=== PATIENT | male | born 1940 | race Caucasian/White ===

== ENCOUNTER → 2017-04-15 | Outpatient (CLI) | payer MEDICARE, BC ==
[2017-04-15 07:43] LABS: Blood Urea Nitrogen 18 mg/dL (9-20); Non-African American GFR(MDRD) >60 (>60 ml/min/1.73 sqM)
--- NOTE | 2017-04-15 12:05 | MR ---
EXAMINATION TYPE: MR cspine/lspine wo/w con DATE OF EXAM: 04/15/2017 COMPARISON: NONE HISTORY: cervicalgia, low back pain TECHNIQUE: Multiplanar, multisequence images of the lumbar and cervical spine is performed without and with IV c ontrast, utilizing 20 mL intravenous MultiHance FINDINGS: Cervical spine: Erosive change present at the level of the dens, there is a pannus formation. Cervica l vertebral bodies show preserved height and alignment, minimal mild anterolisthesis grade 1 C7-T1. T here is multilevel spondylosis, loss of disc height and signal is present especially at C4-5, C5-6 an d C6-7. Endplate discogenic marrow signal changes are present. There may be an underlying spinal curv ature. No abnormal enhancement following contrast administration. Cervical cord signal is maintained. C2-3: Posterior broad-based disc bulge contacts anterior cervical cord, mild to moderate central aminata l stenosis. Uncovertebral joint hypertrophy and facet arthropathy causing left-sided foraminal encroa chment. C3-4: Posterior broad-based disc bulge may contact the anterior cervical cord. Bilateral foraminal en croachment present left greater than right. There is mild central stenosis. C4-5: Bilateral foraminal encroachment is present right greater than left. Anterolateral mass effect on the thecal sac towards the right due to endplate disc complex extending towards the right neural f oramen. On mild central stenosis. C5-6: Posterior broad-based disc bulge, endplate disc complex causes anterior mass effect on the thec al sac, mild central stenosis. There is bilateral foraminal encroachment. C6-7: Left greater than right foraminal encroachment is present. Posterior broad-based disc bulge cau ses only minimal anterior mass effect on the thecal sac, no significant central stenosis C7-T1: No significant central stenosis or disc herniation. There is bilateral foraminal encroachment. IMPRESSION: Multilevel foraminal encroachment, degenerative disc disease, spinal stenosis. Arthropat hy changes at C2. Lumbar spine MRI: Anterolisthesis grade 1 L4-5. Loss of disc height and signal is present at L4-5. Mu ltilevel spondylosis, endplate discogenic marrow signal changes are present. Lumbar vertebral bodies show preserved height. T12 shows hemangioma within the vertebral body. The conus is at L1 shows an un remarkable appearance. Large exophytic cyst present at the lower pole right kidney measuring approxim ately 5.5 cm in size. L5-S1: Facet arthropathy changes present with hypertrophy of ligamentum flavum. Posterior extension o f broad-based disc bulge may contact the proximal S1 nerve root left greater than right. Only minimal posterior broad-based disc bulge, some mild left-sided foraminal encroachment suspected. L4-5: Listhesis contributes with facet arthropathy and hypertrophic changes of the ligamentum flavum to result in severe central canal stenosis. Bilateral foraminal encroachment is present. There is onl y a small posterior broad-based disc bulge. L3-4: No significant central stenosis, foraminal encroachment, or disc herniation. L2-3: Broad-based posterior disc bulge causes minimal anterior mass effect on the thecal sac. No sign ificant central stenosis or foraminal encroachment. L1-2: Broad-based posterior disc bulge causes mild anterior mass effect on the thecal sac. Hypertroph ic change of the ligamentum flavum causes some minimal contact posterior laterally at the thecal sac. No abnormal enhancement following contrast administration. IMPRESSION: Degenerative disc disease, facet arthropathy, spinal stenosis most marked at L4-5. Additi onal findings above.
== END | disposition home or self-care (01) ==
LOC: RADMRIMAIN 07:16
PROVIDERS: ATTEND Physical Medicine & Rehabilitation
DX: M48.06 Spinal stenosis, lumbar region (principal); M51.36 Other intervertebral disc degeneration, lumbar region; M46.96 Unspecified inflammatory spondylopathy, lumbar region; M46.92 Unspecified inflammatory spondylopathy, cervical region; M43.16 Spondylolisthesis, lumbar region; M47.817 Spondylosis without myelopathy or radiculopathy, lumbosacral region; M48.02 Spinal stenosis, cervical region; M50.10 Cervical disc disorder with radiculopathy, unspecified cervical region; M47.22 Other spondylosis with radiculopathy, cervical region; M41.22 Other idiopathic scoliosis, cervical region; M16.0 Bilateral primary osteoarthritis of hip; Z85.46 Personal history of malignant neoplasm of prostate
CPT/HCPCS: 82565; 84520; 72156; 72158; A9577

== ENCOUNTER → 2018-07-10 | Outpatient (CLI) | payer MEDICARE, BC | END | disposition home or self-care (01) | LOC: LABPAT 12:35 | PROVIDERS: ATTEND Orthopaedic Surgery | DX: Z01.812 Encounter for preprocedural laboratory examination (principal); M16.12 Unilateral primary osteoarthritis, left hip | CPT/HCPCS: 86850; 86900; 86901; 87070; 87086 ==

== ENCOUNTER 2018-07-20 10:40 | Inpatient (IN) | payer MEDICARE, BC ==
[2018-07-09 15:20] VITALS: BMI 31.0
[~2018-07-20 10:40] MED LIST: ACETAMINOPHEN TAB 500 MG TAB PO ONE; DEXAMETHASONE SOD PHOSPHATE 10 MG/ML 1 ML VIAL IV ONE; HYDROmorphone 0.5 MG/0.5 ML SYRINGE IVP PRN; MELOXICAM 7.5 MG TAB PO ONE; MIDAZOLAM 2 MG/2 ML VIAL IV PRN; ONDANSETRON 4 MG/2 ML VIAL IVP ONE; ROPIVACAINE 246.25 MG, EPINEPHrine 0.5 MG, KETOROLAC 30 MG, cloNIDine HCL/PF 80 MCG, WA... MISCELLANE ONE; TRANEXAMIC ACID 1,000 MG in SODIUM CHLORIDE 0.9% 50 ML IVPB ONE; ceFAZolin IN SWFI 2 GM/20 ML SYRINGE IVP ONE
[2018-07-20] MEDS ORDERED: MAGNESIUM HYDROXIDE 2,400 MG/10 ML CUP PO PRN (11:33)
[2018-07-20] MEDS ORDERED: NALOXONE 0.4 MG/ML 1 ML VIAL IV PRN (11:33)
[2018-07-20] MEDS ORDERED: ONDANSETRON 4 MG/2 ML VIAL IVP PRN (11:33)
[2018-07-20] MEDS ORDERED: HYDROmorphone 1 MG/ML 1 ML SYRINGE IVP PRN ×3 (11:33)
[2018-07-20] MEDS ORDERED: HYDROcodone/APAP 5-325MG 1 EACH TAB PO PRN (11:33)
[2018-07-20] MEDS ORDERED: DIAZEPAM 5 MG TAB PO PRN ×2 (11:33)
[2018-07-20] MEDS ORDERED: hydrOXYzine PAMOATE 25 MG CAP PO PRN (11:33)
[2018-07-20 11:34] VITALS: RESP 16
[2018-07-20] MEDS: LACTATED RINGERS 1,000 ML IV SCH (11:35)
[2018-07-20] MEDS ORDERED: LIDOCAINE 1% 20 ML VIAL (10MG/ML) FOR IV START INTRADERMA ONE (11:35)
[2018-07-20] MEDS ORDERED: fentaNYL (PF) 50 MCG/ML 2 ML AMP ONE (12:18)
[2018-07-20] MEDS ORDERED: PROPOFOL 10 MG/ML 20 ML VIAL IV ONE (12:18)
[2018-07-20] MEDS ORDERED: MIDAZOLAM 2 MG/2 ML VIAL ONE (12:18)
[2018-07-20] MEDS ORDERED: SODIUM CHLORIDE 0.9% 100 ML BAG ONE (12:18)
[2018-07-20] MEDS ORDERED: TRANEXAMIC ACID 1,000 MG/10 ML VIAL ONE (12:18)
[2018-07-20] MEDS ORDERED: ceFAZolin 3,000 MG in SODIUM CHLORIDE 0.9% IRRIGATIO 3,000 ML IRRIGATION ONE (13:04)
--- NOTE | 2018-07-20 13:51 | P.OP ---
Date of Procedure: 07/20/18 Preoperative Diagnosis: Severe osteoarthritis left hip Postoperative Diagnosis: Severe osteoarthritis left hip. Procedure(s) Performed: Left total hip arthroplasty with a direct anterior approach Implants: Scott [employer] nephew Polarstem size 4 standard [employer]hew R3, 3 hole acetabular shell, 52 mm [employer] reflection 6.5 mm cancellus screw, 25 mm 2 [employer] R3, XLPE 20 acetabular liner [employer]hew Oxinium femoral head 36 m, +0 All components were press-fit. The articulation is Oxinium on polyethylene. Anesthesia: spinal Surgeon: Luis Antonio Joaquin Process Engineering Intern #1: Sangita Wesley Estimated Blood Loss (ml): 100 Pathology: other (Femoral head) Condition: stable Disposition: PACU Indications for Procedure: After failure of conservative treatment we discussed the surgical and nonsurgical treatment options at length. Patient wishes to proceed with a total hip arthroplasty with a direct anterior approach. Complications specific to this procedure were discussed at length, including but not limited to infection, leg length discrepancy, dislocation, and nerve injury. Patient is aware of all these complications and informed consent was obtained Operative Findings: The operative findings are consistent with severe osteoarthritis of left hip Description of Procedure: Patient was seen and evaluated in the preoperative area, consent was reviewed, and the surgical site was marked with a skin marker. Patient was then brought to the operating room and given prophylactic antibiotics intravenously. 1 g of Tranexamic acid was also given. A spinal anesthetic was administered by the anesthesia department. The patient was then placed on the [place] table with the bony prominences well-padded. The hip area was then prepped and draped in usual sterile fashion. A universal timeout was then performed, which confirmed the patient's name, surgical site, ALLERGIES, and procedure being performed. Next the incision site was located at 1 cm distal and 1 cm lateral to the anterior superior iliac spine. The skin and subcutaneous tissues were sharply incised. Incision was carefully dissected down to the fascia overlying the tensor fascia hans muscle. This fascia was then incised in line with the incision. Next, using blunt finger dissection, the tensor fascia hans muscle was dissected off its investing fascia. The muscle was then carefully retracted laterally with a cobra retractor over the lateral neck of the femur. Next, the circumflex vessels were identified and cauterized using the AquaMantis device. The anterior hip capsule was then exposed. The capsule was then opened and an inverted T fashion. Cobra retractors were then placed intracapsularly. The proximal femur was then visualized. The femoral neck was then osteotomized appropriate level above the lesser trochanter. Small amount of traction was placed with the [place] table. A small wedge of bone was then removed from the remaining femoral head. Next, using a corkscrew femoral head was easily removed from the acetabulum. On gross visual inspection, the femoral head had complete loss of articular cartilage in multiple periarticular osteophytes. Attention was then turned to the acetabulum. the acetabulum was exposed and any remaining labrum was excised. Sequential reaming of the acetabulum was performed using fluoroscopic guidance. When the appropriate size was reached, a trial was then placed. The position and fit of the trial was checked with fluoroscopy. The trial was then removed. Then, using fluoroscopic guidance, the final implant was impacted at 20 of anteversion and 40 of abduction, and fully seated in the acetabulum. 2 screws were then placed in the acetabulum. Again fluoroscopy was used to check position of the screws. Next, the liner was then impacted, with a 20 elevated liner located in the anterior superior quadrant. Component locking was confirmed. Attention was then directed to the femur. With the aid of the [place] table, the femur was externally rotated to approximately 130, extended, and abducted under the opposite leg. A side hook was then placed under the proximal femur, and the side hook elevator was used to elevate the proximal femur. Retractors were then placed. A capsular release was performed, as well as a release of the conjoined tendon, which afforded excellent visualization of the proximal femur. Next, a box osteotome was used to lateralize the proximal femur. A merchandising intern was then used to locate the femoral canal. Sequential broaching was then performed with appropriate size which afforded excellent fixation in the proximal femur. A trial was then placed with appropriate head and neck, and the hip was gently reduced with the aid of the [place] table. Fluoroscopy was then used to check position of the components, as well as to ensure equal leg lengths. The hip was then gently dislocated and the trials were then removed. Final implants were then impacted and the hip was again reduced. Final fluoroscopic x-rays confirmed that the components were in anatomic position, as well as equal leg lengths. The hip was also taken through range of motion, and found to be stable. The hip was then copiously irrigated with antibiotic solution with pulsatile lavage. The hip was then irrigated with Irrisept solution. The soft tissues were then injected with a ropivacaine solution, which consisted of 246.25 mg of ropivacaine, 0.5 mg of epinephrine, 30 mg of Toradol, 80 g of clonidine, and 48.45 mL of sterile water, for a total of 100 mL of fluid injected. A second dose of 1 g of Tranexamic acid was also given. the fascia was then closed with 2-0 strata fix suture. The subcutaneous tissue was closed with 3-0 Vicryl. The subcuticular tissue was closed with 3-0 strata fix suture. The skin was then closed with Dermabond glue and a sterile silver dressing. The patient was then transferred to the recovery room in stable condition. The assistant manager BISMARK Muhammad was required due to the complexity of surgery, and the need for skilled operating room surgical technologist for positioning, draping, exposure, retraction, and closure of the wound.
--- NOTE | 2018-07-20 14:31 | XR ---
EXAMINATION TYPE: XR Hip Limited 1 view LT DATE OF EXAM: 07/20/2018 COMPARISON: NONE HISTORY: 77-year-old male status post hip surgery, assess surgical alignment FINDINGS: Single frontal view shows left hip arthroplasty. Both acetabular cup and femoral stem components of t he prosthesis appear well seated without periprosthetic fracture. Alignment grossly anatomic. Surgica l clips in the midline pelvis. IMPRESSION: Uncomplicated postoperative appearance left total hip arthroplasty.
[2018-07-20] MEDS: SODIUM CHLORIDE 0.9% 1,000 ML IV SCH (14:43)
--- NOTE | 2018-07-20 15:58 | FL ---
Fluoroscopy HISTORY: Left hip arthroplasty 45 seconds fluoroscopy time supplied to the referring clinician. 2 intraoperative C-arm images docum ent the procedure. See dictated report from orthopedic surgery.
--- NOTE | 2018-07-20 15:59 | XR ---
Limited left hip HISTORY: Total hip arthroplasty 2 intraoperative C-arm images document the procedure.
[2018-07-20] MEDS: ceFAZolin IN SWFI 2 GM/20 ML SYRINGE IVP SCH (20:56)
[2018-07-20] MEDS: ASPIRIN 325 MG TAB PO SCH (20:56)
[2018-07-20] MEDS: HYDROcodone/APAP 5-325MG 1 EACH TAB PO PRN (20:56)
[2018-07-20] MEDS ORDERED: SENNOSIDES-DOCUSATE SODIUM 1 EACH TAB PO SCH (21:00)
[2018-07-21] MEDS: HYDROcodone/APAP 5-325MG 1 EACH TAB PO PRN ×2 (03:12→09:04)
[2018-07-21] MEDS: SODIUM CHLORIDE 0.9% 1,000 ML IV SCH (04:51)
[2018-07-21] MEDS: ceFAZolin IN SWFI 2 GM/20 ML SYRINGE IVP SCH (05:29)
[2018-07-21] MEDS: LACTATED RINGERS 1,000 ML IV SCH (07:18)
[2018-07-21 08:14] LABS: Basophils % (A) 0 %; Eosinophils % (A) 0 %; HCT 36.4 % (39.0-53.0); HGB 12.3 gm/dL (13.0-17.5); Lymphocytes # (A) 1.5 k/uL (1.0-4.8); Lymphocytes % (A) 10 %; MCH 32.1 pg (25.0-35.0); MCHC 33.7 g/dL (31.0-37.0); MCV 95.4 fL (80.0-100.0); Mean Platelet Volume 7.8; Monocytes # (A) 1.1 k/uL (0-1.0); Monocytes % (A) 7 %; Neutrophils # (A) 12.1 k/uL (1.3-7.7); Neutrophils % (A) 81 %; Platelet Count 239 k/uL (150-450); RBC 3.82 m/uL (4.30-5.90); RDW 13.5 % (11.5-15.5); WBC 14.9 k/uL (3.8-10.6)
[2018-07-21] MEDS ORDERED: MELOXICAM 7.5 MG TAB PO SCH (09:00)
[2018-07-21] MEDS ORDERED: LISINOPRIL-HCTZ 20-25 MG 1 EACH TAB PO SCH (09:00)
[2018-07-21] MEDS ORDERED: amLODIPine 5 MG TAB PO SCH (09:00)
[2018-07-21] MEDS ORDERED: ALLOPURINOL 100 MG TAB PO SCH (09:00)
[2018-07-21] MEDS: ASPIRIN 325 MG TAB PO SCH (09:02)
--- NOTE | 2018-07-21 09:11 | P.CONS ---
History of Present Illness - Reason for Consult Consult date: 07/21/18 medical management Requesting physician: Luis Antonio Joaquin - Chief Complaint Status post left total hip - History of Present Illness 77-year-old male who underwent elective left total hip arthroplasty on 07/20/[address] Hobson was consulted for medical management. The patient has a history of prostate cancer and hypertension. The patient is a former cigarette smoker and quit smoking approximately 15 years ago. The patient was seen and examined at the bedside with Dr. Hobson. The patient is awake and alert. Patient states his pain is tolerable at this time. He denies cough, congestion, or shortness of breath. He denies chest pain or pressure. Denies nausea or vomiting. Denies lightheadedness or dizziness. WBC 14.9. Hemoglobin 12.3. Vital signs have been stable. He is afebrile. He is on room air with oxygen saturations greater than 92%. Review of Systems Those systems with pertinent positive or pertinent negative responses have been documented in the HPI Past Medical History Past Medical History: Cancer, Hypertension, Prostate Disorder Additional Past Medical History / Comment(s): PROSTATE CANCER History of Any Multi-Drug Resistant Organisms: None Reported Past Surgical History: Orthopedic Surgery, Prostate Surgery Additional Past Surgical History / Comment(s): Prostatectomy, right carpal tunnel release, LASIK EYE SX, trigger finger, colonoscopy about 3 years ago. Past Anesthesia/Blood Transfusion Reactions: No Reported Reaction Smoking Status: Former smoker - Past Family History Father Family Medical History: Cancer, CVA/TIA Additional Family Medical History / Comment(s): LUNG CANCER Mother Family Medical History: Coronary Artery Disease (CAD) Additional Family Medical History / Comment(s): HEART PROBLEMS Daughter(s) Family Medical History: No Reported History Son(s) Family Medical History: No Reported History Medications and Allergies Home Medications Medication Instructions Recorded Confirmed Type amLODIPine [Norvasc] 5 mg PO QAM 07/18/15 07/20/18 History HYDROcodone/APAP 7.5-325MG [[place] 1 - 2 tab PO Q4-6H PRN 07/21/15 07/20/18 History 7.5-325] Allopurinol [Zyloprim] 100 mg PO DAILY 07/09/18 07/20/18 History Lisinopril-Hctz 20-25 mg 1 tab PO QAM 07/09/18 07/20/18 History [Zestoretic 20-25] Naproxen 500 mg PO BID 07/09/18 07/20/18 History Allergies Allergy/AdvReac Type Severity Reaction Status Date / Time No Known Allergies Allergy Verified 07/20/18 13:59 Physical Exam Vitals: Vital Signs Temp Pulse Pulse Resp BP BP Pulse Ox 07/21/18 07:35 98.5 F 65 16 142/69 96 07/21/18 01:18 98.7 F 64 16 135/68 98 07/20/18 16:59 58 L 132/63 94 L 07/20/18 16:45 63 137/72 97 07/20/18 16:30 75 152/70 95 07/20/18 16:15 73 136/63 95 07/20/18 16:00 58 L 16 144/67 95 07/20/18 15:45 98 109/88 98 07/20/18 15:30 88 117/70 98 07/20/18 15:15 72 145/66 98 07/20/18 15:00 97.8 F 65 16 129/61 95 07/20/18 14:42 66 16 124/60 98 07/20/18 14:29 65 16 119/57 95 07/20/18 14:13 65 16 128/57 93 L 07/20/18 13:59 97.8 F 69 16 126/53 93 L 07/20/18 11:20 98.1 F 64 16 169/83 96 Intake and Output 07/20/18 07/21/18 07/21/18 22:59 06:59 14:59 Intake Total 118 240 Balance 118 240 Intake: Oral 118 240 Other: # Voids 1 # Bowel Movements 1 Weight 95.254 kg GENERAL: This is a 77-year-old male in no apparent distress at the time of examination. Pleasant and cooperative. HEENT: Head is atraumatic, normocephalic. Pupils are equal, round, and reactive to light. Sclerae anicteric. Conjunctivae are clear. Mucus membranes of the mouth are moist. Neck is supple. RESPIRATORY: Clear to auscultation. No wheezes, rales, or rhonchi. No use of accessory muscles. Patient maintaining oxygen saturation greater than 92%. No chest wall tenderness is noted on palpation or with deep breathing. CARDIOVASCULAR: Regular rate and rhythm. S1 and S2 noted. No JVD noted. No S3 or S4 noted. GASTROINTESTINAL: No distention noted. Abdomen soft and round. Normal active bowel sounds auscultated x 4 quadrants. No pain or tenderness noted upon palpation. INTEGUMENTARY: Dressing to left hip clean dry and intact. No cyanosis. No jaundice. No rashes noted. No cellulitis noted. EXTREMITIES: 2+ peripheral pulses. No evidence of peripheral edema. No calf tenderness noted. NEUROLOGIC: Cranial nerves II-XII intact. PSYCHIATRIC: Awake, alert, and oriented X 3. Appropriate affect. Intact judgement and insight. Results CBC & Chem 7: 07/21/18 07:10 Labs: Abnormal Lab Results - Last 24 Hours (Table) 07/21/18 Range/Units 07:10 WBC 14.9 H (3.8-10.6) k/uL RBC 3.82 L (4.30-5.90) m/uL Hgb 12.3 L (13.0-17.5) gm/dL Hct 36.4 L (39.0-53.0) % Neutrophils # 12.1 H (1.3-7.7) k/uL Monocytes # 1.1 H (0-1.0) k/uL Assessment and Plan Plan: ASSESSMENT: Osteoarthritis, status post left total hip arthroplasty Hypertension History of prostate cancer Obesity: BMI 31.0 History of nicotine dependence, patient quit smoking 15 years ago PLAN: Continue postoperative care per orthopedics. Activity as tolerated. Encourage ambulation. PT/OT. Pain control. Incentive spirometer 10 times an hour. Resume home meds as appropriate. Monitor vital signs and address as appropriate. DVT prophylaxis with aspirin 325 mg twice a day. GI prophylaxis with Pepcid twice daily. Thank you for this consultation. We will continue to follow with Ruy michelleing his hospitalization. Nurse practitioner note has been reviewed by physician. Signing provider agrees with the documented findings, assessment, and plan of care.
[2018-07-21] MEDS ORDERED: HYDROcodone/APAP 7.5-325MG 1 EACH TAB PO PRN ×2 (14:03)
--- NOTE | 2018-07-21 14:07 | P.DS ---
Providers Date of admission: 07/20/18 10:40 Expected date of discharge: 07/21/18 Attending physician: Luis Antonio Joaquin Consults: 07/20/18 11:33 Consult Physician Routine Consulting Provider: Willian Hobson Reason/Comments: medical management Do you want consulting provider notified?: Yes Primary care physician: Willian Hobson - Discharge Diagnosis(es) (1) Primary osteoarthritis of left hip Current Visit: Yes Status: Acute (2) S/P total hip arthroplasty Current Visit: Yes Status: Acute Hospital Course: This is a 77-year-old male with known history of degenerative arthritis of the left hip. The patient presents for evaluation. After discussion and consideration patient elects to proceed with total hip arthroplasty. The patient is seen preoperatively by Dr. Joaquin and medically cleared for surgery by their primary care physician. Patient is admitted to [facility] on 07/20/2018 for total hip arthroplasty. The procedures performed without complication or sequelae. The patient is doing well postoperatively. Labs and vital signs are stable on day of discharge. On day of discharge patient's hip incision is healing well. There is minimal erythema. There is no drainage noted at this time. There is minimal soft tissue swelling to the hip and thigh. Patient has full foot and ankle motion without difficulty or pain. Neurovascular status to the left lower extremity is intact. Patient is discharged home in good condition. Please see med rec for accurate list of home medications. Plan - Discharge Summary Discharge Rx Participant: Yes New Discharge Prescriptions: New Aspirin 325 mg PO BID #60 tab HYDROcodone/APAP 7.5-325MG [[place] 7.5-325] 1 - 2 tab PO Q4-6H PRN #84 tab PRN Reason: Pain Sennosides [Senokot] 1 tab PO BID #60 tablet Continue amLODIPine [Norvasc] 5 mg PO QAM Lisinopril-Hctz 20-25 mg [Zestoretic 20-25] 1 tab PO QAM Allopurinol [Zyloprim] 100 mg PO DAILY No Action HYDROcodone/APAP 7.5-325MG [[place] 7.5-325] 1 - 2 tab PO Q4-6H PRN PRN Reason: Pain Naproxen 500 mg PO BID Discharge Medication List amLODIPine [Norvasc] 5 mg PO QAM 07/18/15 [History] HYDROcodone/APAP 7.5-325MG [[place] 7.5-325] 1 - 2 tab PO Q4-6H PRN 07/21/15 [ History] Allopurinol [Zyloprim] 100 mg PO DAILY 07/09/18 [History] Lisinopril-Hctz 20-25 mg [Zestoretic 20-25] 1 tab PO QAM 07/09/18 [History] Naproxen 500 mg PO BID 07/09/18 [History] Aspirin 325 mg PO BID #60 tab 07/21/18 [Rx] HYDROcodone/APAP 7.5-325MG [[place] 7.5-325] 1 - 2 tab PO Q4-6H PRN #84 tab [Rx] Sennosides [Senokot] 1 tab PO BID #60 tablet 07/21/18 [Rx] Follow up Appointment(s)/Referral(s): Willian Hobson DO [Primary Care Provider] - 2 Weeks Luis Antonio Joaquin DO [Doctor of Osteopathic Medicine] - 2 Weeks Activity/Diet/Wound Care/Special Instructions: Weightbearing as tolerated with walker Leave dressing intact. Dressing may be removed by home care nurse in 10 days. May shower with dressing on. Follow-up with [facility] in 2 weeks, please call with any questions or concerns [phone]. Discharge Disposition: HOME WITH HOME HEALTH SERVICES
[2018-07-21 15:43] VITALS: BP 133/67; PULSE 67; TEMP 97.9
[2018-07-21] MEDS ORDERED: FAMOTIDINE 20 MG TAB PO SCH (21:00)
== END 2018-07-21 15:57 | disposition home or self-care (01) | DRG 470 ==
LOC: 2ORMAIN 10:40 → 4SSUR 13:59
PROVIDERS: ADMIT Orthopaedic Surgery; ATTEND Orthopaedic Surgery
PROC: 0SRB06A Replacement of Left Hip Joint with Oxidized Zirconium on Polyethylene Synthetic Substitute, Uncemented, Open Approach (ICD-10-PCS; principal; 2018-07-20 12:30)
DX: M16.12 Unilateral primary osteoarthritis, left hip (principal); E66.9 Obesity, unspecified; I10 Essential (primary) hypertension; Z68.31 Body mass index [BMI] 31.0-31.9, adult; Z80.1 Family history of malignant neoplasm of trachea, bronchus and lung; Z82.49 Family history of ischemic heart disease and other diseases of the circulatory system; Z85.46 Personal history of malignant neoplasm of prostate; Z87.891 Personal history of nicotine dependence; Z90.79 Acquired absence of other genital organ(s); Z79.82 Long term (current) use of aspirin; Z79.899 Other long term (current) drug therapy
CPT/HCPCS: 73501; 85025; 86850; 86900; 86901; 88300

== ENCOUNTER → 2020-11-27 | Outpatient (CLI) | payer MEDICARE, BC ==
--- NOTE | 2020-11-27 13:29 | P.PAINCN ---
History of Present Illness - Reason for Consult Consult date: 11/27/20 - History of Present Illness This is 80 years old male with a chronic history of severe neck pain and low back pain, started 20 years ago, he was treated at [facility], and patient was referred to [facility] pain clinic for evaluation regarding his neck pain, the pain is not radiated to the upper extremity patient denies any numbness or tingling sensation in the upper extremity, denies any weakness in the upper extremity, the pain is constant and increases with any neck movement, he denies any change in the bowel movement or urination, and still the pain interfere with her quality of life, and interfere with activity of daily livings Patient had RFA of the medial branch in the cervical area from C2 to C5, bilaterally and he get excellent pain relief (done at the [facility] ) Past Medical History Past Medical History: Cancer, Hypertension, Prostate Disorder Additional Past Medical History / Comment(s): PROSTATE CANCER History of Any Multi-Drug Resistant Organisms: None Reported Past Surgical History: Joint Replacement, Orthopedic Surgery, Prostate Surgery Additional Past Surgical History / Comment(s): Prostatectomy, right carpal tunnel release, LASIK EYE SX, trigger finger, colonoscopy , LT [facility], HAD NECK INJECTIONS AND RFA AT [facility]. Past Anesthesia/Blood Transfusion Reactions: No Reported Reaction Smoking Status: Former smoker - Past Family History Father Family Medical History: Cancer, CVA/TIA Additional Family Medical History / Comment(s): LUNG CANCER Mother Family Medical History: Coronary Artery Disease (CAD) Additional Family Medical History / Comment(s): HEART PROBLEMS Daughter(s) Family Medical History: No Reported History Son(s) Family Medical History: No Reported History Medications and Allergies Home Medications Medication Instructions Recorded Confirmed Type amLODIPine [Norvasc] 5 mg PO QAM 07/18/15 11/22/20 History Naproxen 500 mg PO BID 07/09/18 11/22/20 History allopurinoL [Zyloprim] 100 mg PO DAILY 07/09/18 11/22/20 History Sennosides [Senokot] 1 tab PO BID #60 tablet 07/21/18 11/22/20 Rx Aspirin 325 mg PO DAILY 11/22/20 11/22/20 History Losartan Potassium 100 mg PO DAILY 03/03/21 03/03/21 History Magnesium Oxide 400 mg PO DAILY 11/22/20 11/22/20 History Allergies Allergy/AdvReac Type Severity Reaction Status Date / Time No Known Allergies Allergy Verified 11/22/20 11:22 Physical Exam Vitals: Vital Signs Temp Pulse Resp BP Pulse Ox 11/27/20 08:49 97.7 F 75 16 193/86 97 Physical Examinations : -Constitutiona : Cooperative , not in acute distress . -HEENT : nech : supple , no Lymphadenopathy , normal thyroid size . : eyes : no ptosis , no icterus, no photophobia . - neurologic : Cranial nerve II to XII intact , no focal neurological deffecit . -psychatric : alert , oriented X 3 , appropriate affect , intact judgment and insight . -Lymphatic : no Lymphadenopathy . - musculoskeltal : Cervical Spine motor stregnth in the deltoid and biceps, normal right side , normal Left side motor stregnth biceps and the wrist extensors normal right side ,normal left side . motor stregnth in the triceps muscle . normal Right side , normal Left side deep tendon reflexes normal at the biceps , normal at Brachioradialis , normal at triceps. cervical facet loading test: Positive Bilaterally Spurling test= positive Right , positive left. Neck distraction test= positive Right , positive left. Robyn sign= positive right, positive left . Lumber spine moter stegnth lower extremities ,thigh and legs 5/5 Right side , 5/5 Left side Results Comments: MRI of the cervical spine multilevel cervical degenerative disc disease and multilevel cervical facet arthropathy and moderate to severe spinal stenosis at C2-C3 levels Assessment and Plan Plan: Assessment and plan=1-cervical spondylosis with cervical facet arthropathy without myelopathy. 2-cervical degenerative disc disease. 3-cervical spinal stenosis. Patient had [place] the medial branch cervical area from C2 to C5 bilaterally, and he could benefit from repeat RFA medial branch At C2, C3, C4 ,C5 bilateral Time with Patient: Greater than 30 PQRS Measure Charge Sheet Measure #130: Documentation of Current Meds in Medical Chart: Patient's medications documented in chart Measure #226: Tobacco Use: Screen & Cessation Intervention: Pt not a tobacco user Measure #111: Pneumonia Vaccination: Pneumococcal vaccine NOT administered or previously given Measure #47: Advance Care Plan: Advance care planning discussed & documented, pt chose/unable to give Measure #412: Opioid Treatment Agreement: No documentation of signed opioid treatment agreement Measure #408: Opioid Therapy Follow-up Evaluation: Patient had NO f/u eval minimum every 3 months during opioid therapy Measure #317: Preventitive Care & Scrn High Bld Press & F/U: Pre-hypertensive or hypertensive BP documented, pt will f/u with PCP Measure #128: Body Mass Index (BMI) Screening & Follow-up: BMI documented ABOVE normal parameters - f/u documented Measure #131: Pain Assessment & Follow-up: Pain positive & plan documented, Follow-up scheduled Measure #431: Unhealthy Alcohol Use Preventative Care & Scrn: Patient not identified as an unhealthy alcohol user PQRS Narrative: Smoking Status Former smoker Blood Pressure 193/86 Pain Intensity [Neck] 5 Scale Used Numeric (1 - 10) Hx Alcohol Use (MH) Yes Home Medications: Ambulatory Orders amLODIPine [Norvasc] 5 mg PO QAM 07/18/15 Naproxen 500 mg PO BID 07/09/18 allopurinoL [Zyloprim] 100 mg PO DAILY 07/09/18 Sennosides [Senokot] 1 tab PO BID #60 tablet 07/21/18 Aspirin 325 mg PO DAILY 11/22/20 Losartan Potassium 100 mg PO DAILY 11/22/20 Magnesium Oxide 400 mg PO DAILY 11/22/20
== END | disposition home or self-care (01) ==
CPT/HCPCS: 99211

== ENCOUNTER 2020-12-15 12:40 | Day surgery (SDC) | payer MEDICARE, BC ==
[2020-12-14 09:45] VITALS: BMI 33.2
[~2020-12-15 12:40] MED LIST changes: -ACETAMINOPHEN TAB 500 MG TAB PO ONE; -DEXAMETHASONE SOD PHOSPHATE 10 MG/ML 1 ML VIAL IV ONE; -HYDROmorphone 0.5 MG/0.5 ML SYRINGE IVP PRN; +LACTATED RINGERS 1,000 ML IV SCH; -MELOXICAM 7.5 MG TAB PO ONE; -MIDAZOLAM 2 MG/2 ML VIAL IV PRN; -ONDANSETRON 4 MG/2 ML VIAL IVP ONE; -ROPIVACAINE 246.25 MG, EPINEPHrine 0.5 MG, KETOROLAC 30 MG, cloNIDine HCL/PF 80 MCG, WA... MISCELLANE ONE; -TRANEXAMIC ACID 1,000 MG in SODIUM CHLORIDE 0.9% 50 ML IVPB ONE; -ceFAZolin IN SWFI 2 GM/20 ML SYRINGE IVP ONE
[2020-12-15 13:20] VITALS: TEMP 98
[2020-12-15] MEDS ORDERED: LIDOCAINE 1% (10MG/ML) FOR IV START INTRADERMA ONE (13:29)
[2020-12-15] MEDS ORDERED: ROPIVACAINE 5MG/ML 20ML VIAL ONE (13:59)
[2020-12-15] MEDS ORDERED: LIDOCAINE 1% INJ 10MG/ML (20 ML MDV) ONE (13:59)
[2020-12-15] MEDS ORDERED: DEXAMETHASONE SOD PHOSPHATE 10 MG/ML 1 ML VIAL ONE (13:59)
[2020-12-15] MEDS ORDERED: MIDAZOLAM 2 MG/2 ML VIAL ONE (14:04)
[2020-12-15] MEDS ORDERED: fentaNYL (PF) 50 MCG/ML 2 ML AMP ONE (14:04)
--- NOTE | 2020-12-15 14:27 | P.PCN ---
Date of Procedure: 12/15/20 Surgeon: Julio Cesar Trotter Pathology: none sent Condition: stable Disposition: PACU Description of Procedure: PREOPERATIVE DIAGNOSIS: Cervical spondylosis with Facet Arthropathy without myelopathy, cervical myofascial pain POSTOPERATIVE DIAGNOSIS: Cervical spondylosis with Facet Arthropathy without myelopathy, cervical myofascial pain PROCEDURES: Left Radiofrequency thermocoagulation, C4, and C5 medial branch with Fluroscopy Guidence. I was not able to identify the C6 level due to the patient's body habitus. ANESTHESIA: Local with 1% lidocaine; IV moderate conscious sedation by the anesthesia Department. EBL: Minimal PROCEDURE INDICATION: The patient with neck pain secondary to cervical arthropathy who had more than 50% relief of her pain with previous diagnostic cervical medial branch block. PROCEDURE DESCRIPTION / TECHNIQUE: The patient was seen and identified in the preoperative area. Risks, benefits, complications, and alternatives were discussed with the patient, the patient agreed to proceed with the procedure and signed the consent. IV was started. Vital signs remained stable throughout the procedure. Patient was taken to the OR and time out was completed. The patient was placed in the prone position on the procedure table. The cervical area was prepped and draped in the usual sterile fashion. Critical pause was taken. Vital signs were closely monitored during the procedure. Conscious sedation was used during the procedure to decrease patients anxiety. Using cross-table lateral fluoroscopy, the center of the trapezoid-shaped cervical pillars of C4,and C5 were identified, marked, and localized with 1% lidocaine. Subsequently, a 20 [id number] radiofrequency cannula with a 10-mm active tip was advanced guided by fluoroscopy to the target points mentioned above. . Each site then underwent motor testing at 2 Hz and 0 to 3 volt with local stimulation, but no radicular symptoms down the arm. I then injected 1 ml of lidocaine 1% in each needle. Thereafter C4,C5 sites underwent radiofrequency thermocoagulation at 80 degrees celsius for 90 seconds . After thermocoagulation was done, 1 ml of the block solution containing Dexamethasone 10 mg and 2 mL of preservative-free ropivacaine was injected at the target points after negative aspiration of CSF and blood and with no paresthesias. Cannulas were retracted. Skin was cleansed and bandages were applied. COMPLICATIONS: No acute complications. COMMENTS: A copy of needle placement was saved to the C-arm machine at the radiology department. DISPOSITION / PLANS: The patient was placed in a supine position and transferred to the recovery area in a stable condition for observation and was discharged from the recovery room after meeting discharge criteria. Home discharge instructions given to the patient by the staff.
[2020-12-15] MEDS ORDERED: IV FLUID CONTINUATION 1,000 ML IV ONE (14:32)
[2020-12-15 14:39] VITALS: RESP 18
--- NOTE | 2020-12-15 14:39 | FL ---
Fluoroscopy History: Cerv Rad freq 27 sec fl-1 image
[2020-12-15 14:54] VITALS: BP 157/71; PULSE 67
== END 2020-12-15 15:07 | disposition home or self-care (01) ==
LOC: ORPAIN 12:40
PROVIDERS: ATTEND Anesthesiology
DX: M47.812 Spondylosis without myelopathy or radiculopathy, cervical region (principal); M79.18 Myalgia, other site; I10 Essential (primary) hypertension; E66.01 Morbid (severe) obesity due to excess calories; Z68.32 Body mass index [BMI] 32.0-32.9, adult; M10.9 Gout, unspecified; Z85.46 Personal history of malignant neoplasm of prostate; Z79.82 Long term (current) use of aspirin; Z79.899 Other long term (current) drug therapy
CPT/HCPCS: 64633; J2250; J1100; J2001 ×2; J3010; J2795; 64634

== ENCOUNTER 2021-01-05 12:09 | Day surgery (SDC) | payer MEDICARE, BC ==
[2021-01-05 12:44] VITALS: RESP 18; TEMP 97.8
[2021-01-05] MEDS ORDERED: LIDOCAINE 1% (10MG/ML) FOR IV START INTRADERMA ONE (12:45)
[2021-01-05] MEDS ORDERED: LACTATED RINGERS 1,000 ML IV ONE (12:45)
[2021-01-05] MEDS ORDERED: MIDAZOLAM 2 MG/2 ML VIAL ONE (12:56)
[2021-01-05] MEDS ORDERED: fentaNYL (PF) 50 MCG/ML 2 ML AMP ONE (12:56)
[2021-01-05] MEDS ORDERED: LIDOCAINE 1% INJ 10MG/ML (20 ML MDV) ONE (12:56)
[2021-01-05] MEDS ORDERED: ROPIVACAINE 5MG/ML 20ML VIAL ONE (12:56)
--- NOTE | 2021-01-05 13:23 | P.PCN ---
Date of Procedure: 01/05/21 Description of Procedure: PREOPERATIVE DIAGNOSIS: Cervical spondylosis with Facet Arthropathy without myelopathy, cervical myofascial pain POSTOPERATIVE DIAGNOSIS: Cervical spondylosis with Facet Arthropathy without myelopathy, cervical myofascial pain PROCEDURES: right Radiofrequency thermocoagulation, C4, and C5 medial branch with Fluroscopy Guidence. Seizure was border C4-C5 and C6. However given the patient's body habitus C6 unable to be visualized to confirm safe needle placement. Patient had ANESTHESIA: Local with 1% lidocaine; IV moderate conscious sedation by the anesthesia Department. EBL: Minimal PROCEDURE INDICATION: The patient with neck pain secondary to cervical arthropathy who had more than 50% relief of her pain with previous diagnostic cervical medial branch block. PROCEDURE DESCRIPTION / TECHNIQUE: The patient was seen and identified in the preoperative area. Risks, benefits, complications, and alternatives were discussed with the patient, the patient agreed to proceed with the procedure and signed the consent. IV was started. Vital signs remained stable throughout the procedure. Patient was taken to the OR and time out was completed. The patient was placed in the prone position on the procedure table. The cervical area was prepped and draped in the usual sterile fashion. Critical pause was taken. Vital signs were closely monitored during the procedure. Conscious sedation was used during the procedure to decrease patients anxiety. Using cross-table lateral fluoroscopy, the center of the trapezoid-shaped cervical pillars of C4,and C5 were identified, marked, and localized with 1% lidocaine. Subsequently, a 20 [id number] radiofrequency cannula with a 10-mm active tip was advanced guided by fluoroscopy to the target points mentioned above. . Each site then underwent motor testing at 2 Hz and 0 to 3 volt with local stimulation, but no radicular symptoms down the arm. I then injected 1 ml of lidocaine 1% in each needle. Thereafter C4,C5 sites underwent radiofrequency thermocoagulation at 80 degrees celsius for 90 seconds . After thermocoagulation was done, 1 ml of the block solution containing Dexamethasone 10 mg and 2 mL of preservative-free ropivacaine was injected at the target points after negative aspiration of CSF and blood and with no paresthesias. Cannulas were retracted. Skin was cleansed and bandages were applied. COMPLICATIONS: No acute complications. COMMENTS: A copy of needle placement was saved to the C-arm machine at the radiology department. DISPOSITION / PLANS: The patient was placed in a supine position and transferred to the recovery area in a stable condition for observation and was discharged from the recovery room after meeting discharge criteria. Home discharge instructions given to the patient by the staff.
[2021-01-05] MEDS ORDERED: IV FLUID CONTINUATION 1,000 ML IV ONE (13:26)
[2021-01-05 13:46] VITALS: BP 117/78; PULSE 67
--- NOTE | 2021-01-05 14:03 | FL ---
Fluoroscopy INDICATION: Pain FINDINGS: Fluoroscopy time: 39 seconds. Images obtained: 2. IMPRESSIONS: 1. Documentation of fluoroscopy.
== END 2021-01-05 14:00 | disposition home or self-care (01) ==
LOC: ORPAIN 12:09
PROVIDERS: ATTEND Anesthesiology
DX: M47.812 Spondylosis without myelopathy or radiculopathy, cervical region (principal); M79.18 Myalgia, other site; I10 Essential (primary) hypertension; Z85.46 Personal history of malignant neoplasm of prostate; Z79.82 Long term (current) use of aspirin; Z79.899 Other long term (current) drug therapy
CPT/HCPCS: 64633; J2250; J2001; J3010; J2795

== ENCOUNTER → 2021-01-29 | Outpatient (CLI) | payer MEDICARE, BC ==
--- NOTE | 2021-01-29 10:00 | P.PN ---
Subjective Progress Note Date: 01/29/21 Ruy is an 80-year-old gentleman who presents for follow-up after having cervical radiofrequency ablation. He reports left-sided efficiency ablation significantly improved his pain. He still having some pain over the right side where he had a recent cervical radio frequency ablation at the C4 5 C5 6 levels. He reports a burning sensation along the skin along with a severe pain with movement. The pain is only over the right side. There is no numbness or tingling going down his arm. There is no weakness in his arm. There is no lower extremity weakness. He has a chronic history of low back pain which is seen Dr. Mckeon in the past. He reports he like to work on that in the future. He is not taking any medications for pain. MRI images were reviewed Objective - Exam PHYSICAL EXAM: Constitutional: Awake and alert no distress Cardiovascular exam: Regular rate, no lower extremity edema, palpable pulses bilaterally Respiratory exam: No audible wheezing, no accessory muscle usage Abdominal exam: Soft nontender Muscular skeletal exam: - Cervical spine: Tender to palpation over the right cervical paraspinal muscles, there is skin hyperalgesia noted. Range of motion is limited with right-sided facet loading positive. Spurling is negative bilaterally. Right- sided lateral sidebending causes pain. - Lumbar spine: loss lumbar lordosis, obese midline, lower extremity strength is normal. Pain with flexion and extension of lumbar spine. Neuro exam: Normal sensation bilateral upper and lower extremities. Deep tendon reflexes are 1+ bilaterally. Ag's is negative Psychiatric exam: Cooperative, good insight Assessment and Plan Assessment: Visit the patient has incomplete neuritis of the cervical medial branches. He is intolerance any neuropathic pain medication such as gabapentin or Lyrica. I recommended we try a steroid injection over the medial branches where he had the facet joint ablation. We will also discussed that we can try and treat his low back after this is resolved. We will review the imaging on next visit and determine if any lower back procedures may benefit the patient. I have spent 24 minutes on patient care today. The time was used to review the medical records including relevant urine studies and Prescription history (MAPs), review of the available imaging, evaluation and examination of the patient, coordination of care with the medical staff and if applicable referring physicians, as well as creation of the medical record.
[2021-01-29 10:44] VITALS: BP 192/70; PULSE 71; RESP 18; TEMP 98.7
== END ==
LOC: PNWHC3 09:07
PROVIDERS: ATTEND Hospitalist
DX: M54.12 Radiculopathy, cervical region (principal); Z98.890 Other specified postprocedural states; Z87.891 Personal history of nicotine dependence
CPT/HCPCS: 99211

== ENCOUNTER 2021-02-16 12:51 | Day surgery (SDC) | payer MEDICARE, BC ==
[2021-02-14 13:16] VITALS: BMI 32.5
[2021-02-16 13:32] VITALS: RESP 16; TEMP 97.6
[2021-02-16] MEDS ORDERED: LACTATED RINGERS 1,000 ML IV ONE ×2 (13:45→14:36)
[2021-02-16] MEDS ORDERED: MIDAZOLAM 2 MG/2 ML VIAL ONE (14:13)
[2021-02-16] MEDS ORDERED: methylPREDNISolone ACETATE 40 MG/ML 1 ML VIAL ONE (14:13)
[2021-02-16] MEDS ORDERED: fentaNYL (PF) 50 MCG/ML 2 ML AMP ONE (14:13)
[2021-02-16] MEDS ORDERED: BUPIVACAINE (PF) 0.25% 30 ML VIAL ONE (14:13)
--- NOTE | 2021-02-16 14:35 | P.PCN ---
Date of Procedure: 02/16/21 Procedure(s) Performed: PREOPERATIVE DIAGNOSIS: Cervical Spondylosis with Facet Arthropathy.without myelopathy POSTOPERATIVE DIAGNOSIS: Cervical Spondylosis Facet Arthropathy. Without myelopathy PROCEDURES: Diagnostic right. C4 , C5 ,C6 medial branch blocks, with fluoroscopic guidance (fluoroscopy images available in radiology department ) ( to target the facet joint at right C4- 5 , C5- 6 ) ANESTHESIA: monitored anesthesia care as per anesthesia department EBL: Minimal PROCEDURE INDICATION: The patient with neck pain secondary to cervical arthropathy unresponsive to more conservative treatments. PROCEDURE DESCRIPTION / TECHNIQUE: The patient was seen and identified in the preoperative area. Risks, benefits, complications, and alternatives were discussed with the patient, the patient agreed to proceed with the procedure and signed the consent. IV was started. Vital signs remained stable throughout the procedure. Patient was taken to the OR and time out was completed. The patient was placed in the prone position on the procedure table. A pillow was placed under the patients chest to increase the cervical interlaminar space. The cervical area was prepped and draped in the usual sterile fashion. Critical pause was taken. Vital signs were closely monitored during the procedure. Conscious sedation was used during the procedure to decrease patients anxiety. Using cross-table lateral fluoroscopy, the centroid of the trapezoid of right C4 , C5 and C6, was identified, marked, and localized with 1% lidocaine 1 ml at each level for skin and Sub Q infiltrations . Subsequently, a 25 G 3 spinal needle was advanced guided by fluoroscopy to the centroid of the trapezoid of Right C4 , C5, C6 . Greenbelt tip position was confirmed at the centroid of the trapezoids of Right C4 , C5 ,C6 with anteroposterior fluoroscopy. Subsequently, 2 ml of preservative-free Bupivacaine 0.75% mixed with Depo- Medrol 40 mg and half ml of the mixture was injected after negative aspiration for blood and CSF. [place] was then removed intact . COMPLICATIONS: No acute complications. DISPOSITION / PLANS: The patient was placed in a supine position and transferred to the recovery area in a stable condition for observation and was discharged from the recovery room after meeting discharge criteria. Home discharge instructions given to the patient by the staff. The patient was reexamined prior to discharge. The patient will schedule a follow up in the clinic in 2-4 weeks.
--- NOTE | 2021-02-16 14:54 | FL ---
All EXAMINATION TYPE: FL guided pain mgmt statistic DATE OF EXAM: 02/16/2021 HISTORY: Pain dr. strange supervised use of aye for a right side cerv facet block. fl time of 28 secs
[2021-02-16 14:57] VITALS: BP 141/73; PULSE 56
== END 2021-02-16 15:16 | disposition home or self-care (01) ==
LOC: ORPAIN 12:51
PROVIDERS: ATTEND Specialist
DX: M47.812 Spondylosis without myelopathy or radiculopathy, cervical region (principal); I10 Essential (primary) hypertension; M10.9 Gout, unspecified; N42.9 Disorder of prostate, unspecified; Z79.82 Long term (current) use of aspirin; Z79.899 Other long term (current) drug therapy
CPT/HCPCS: 64490; 64491; J2250; J1030; J3010

== ENCOUNTER → 2021-03-12 | Outpatient (CLI) | payer MEDICARE, BC ==
[2021-03-12 14:15] VITALS: BP 180/83; PULSE 71; RESP 18; TEMP 97.4
--- NOTE | 2021-03-13 19:52 | P.PN ---
Subjective Progress Note Date: 03/12/21 This is a follow-up visit for this 80 years old male with a chronic history of severe neck pain, and low back pain,, patient diagnosed with cervical spondylosis and cervical facet arthropathy, and lumbar spondylosis with lumbar facet arthropathy, previously patient had RFA of the medial branch cervical are a, and he had RFA of the medial branch lumbar area, recently we did RFA of the medial branch in the cervical area at C4, C5 C6, patient reported that his neck pain improved significantly on the left side ,and he continued to have severe neck pain on the right side of his neck, it is constant and increases with any neck movement, he denies any fever or night sweats. Denies any change in the bowel movement or urination he denies any motor or sensory deficit, he denies any numbness or tingling sensation, also patient complaining of severe low back pain the pain is axial,the pain is not radiated to the lower extremity he denies any motor or sensory deficit in the lower extremity, he denies any change in the bowel movement or urination, Objective - Vital Signs Vital signs: Vital Signs Temp 97.4 F L 03/12/21 14:14 Pulse 71 03/12/21 14:14 Resp 18 03/12/21 14:14 BP 180/83 03/12/21 14:14 Pulse Ox 98 03/12/21 14:14 - Exam Physical Examinations : -Constitutiona : Cooperative , not in acute distress . -HEENT : nech : supple , no Lymphadenopathy , normal thyroid size . : eyes : no ptosis , no icterus, no photophobia . - neurologic : Cranial nerve II to XII intact , no focal neurological deffecit . -psychatric : alert , oriented X 3 , appropriate affect , intact judgment and insight . -Lymphatic : no Lymphadenopathy . - musculoskeltal : Cervical Spine motor stregnth in the deltoid and biceps, normal right side , normal Left side motor stregnth biceps and the wrist extensors normal right side ,normal left side . motor stregnth in the triceps muscle . normal Right side , normal Left side deep tendon reflexes normal at the biceps , normal at Brachioradialis , normal at triceps. cervical facet loading test: Positive on the right side Multiple trigger point identified in the right side cervical paraspinal muscles Lumber spine moter stegnth lower extremities ,thigh and legs 5/5 Right side , 5/5 Left side deep tendon reflexes : normal Knee Jerk , normal ankle Jerk lumber facet Loading Test =positive Right , positive Left Range of motion of the lumbar spine Flexion 30 degrees, extension 10 degrees strait leg raising test = negative bilaterally Fabere test= negative bilaterally . tenderness over the Sacroiliac joint on the Right , and Left sides Assessment and Plan Plan: Assessment and plan=1-cervical spondylosis with cervical facet arthropathy without myelopathy. 2-myofascial pain syndrome and cervical paraspinal muscles. 3-lumbar spondylosis with lumbar facet arthropathy without myelopathy. Patient had RFA of the medial branch cervical area done recently and he is currently complaining of severe localized pain in the cervical area on the right side and this pain mostly secondary to myofascial component patient could benefit from trigger point injections cervical paraspinal muscles Also patient currently complaining of severe low back pain the pain is constant and mostly facetogenic in nature, patient had RFA of the medial branch lumbar area and on at [facility] in 2019 , patient gets excellent pain relief after the radiofrequency of the medial branch lumbar area, he will be good candidate to have a repeat RFA of the medial branch lumbar area patient will be scheduled to have bilateral medial branch RFA at L3, L4, and L5, can be done at the same time we do a trigger point injection in the cervical area, procedure risk and benefits and alternatives discussed with the patient and he agreed with proceeding Time with Patient: Less than 30
== END ==
LOC: PNWHC3 14:05
PROVIDERS: ATTEND Specialist
DX: M47.812 Spondylosis without myelopathy or radiculopathy, cervical region (principal); M79.18 Myalgia, other site; M47.816 Spondylosis without myelopathy or radiculopathy, lumbar region; Z98.890 Other specified postprocedural states; Z87.891 Personal history of nicotine dependence
CPT/HCPCS: 99211

== ENCOUNTER 2021-05-04 10:56 | Day surgery (SDC) | payer MEDICARE, BC ==
[2021-05-03 11:13] VITALS: BMI 34.4
[2021-05-04 11:17] VITALS: TEMP 97.2
[2021-05-04] MEDS ORDERED: LACTATED RINGERS 1,000 ML IV ONE (11:40)
[2021-05-04] MEDS ORDERED: ROPIVACAINE 5MG/ML 20ML VIAL ONE (11:41)
[2021-05-04] MEDS ORDERED: MIDAZOLAM 2 MG/2 ML VIAL ONE (11:41)
[2021-05-04] MEDS ORDERED: TRIAMCINOLONE ACETONIDE 40 MG/ML 1 ML VIAL ONE (11:41)
[2021-05-04] MEDS ORDERED: LIDOCAINE 1% INJ 10MG/ML (20 ML MDV) ONE (11:41)
[2021-05-04] MEDS ORDERED: fentaNYL (PF) 50 MCG/ML 2 ML AMP ONE (11:41)
--- NOTE | 2021-05-04 12:15 | P.PCN ---
Date of Procedure: 05/04/21 Description of Procedure: PREOPERATIVE DIAGNOSIS: Lumbar Spondylosis, cervical myofasical pain POSTOPERATIVE DIAGNOSIS: Same PROCEDURES: Radiofrequency ablation of the L3, L4, L5 medial branches with fluoroscopic guidance bilaterally and cervical paraspinal trigger point injections on the right side SURGEON: Jordon Grant MD. ANESTHESIA: Lidocaine 1% 5 mL, Monitored anesthesia care with anesthesia team EBL: Minimal Fluoroscopy was used for the procedure and images were saved in the radiology portion of the chart. PROCEDURE INDICATION: The patient with low back pain secondary to lumbar facet arthropathy who had more than 50% relief of pain with previous diagnostic annie mbar medial branch block X2. PROCEDURE DESCRIPTION / TECHNIQUE: The patient was seen and identified in the preoperative area. Risks, benefits, complications, including but not limited to risk of infection ,bleeding , allergic reactions to the medications and incomplete pain relief , and alternatives were discussed with the patient, the patient agreed to proceed with the procedure and signed the consent. IV was started. The operative site was marked. Patient was taken to the OR and time out was completed. The patient was placed in the prone position on the procedure table. The lumbar area was prepped and draped in the usual sterile fashion. . Vital signs were closely monitored during the procedure .IV sedation was used during the procedure to decrease patients anxiety. Using AP and then oblique fluoroscopy, the "eye of the Lance dog" corresponding to the connection between the superior and transverse articular processes of the L4 and L5 as well as the sacral ala were identified, marked, and localized with 1% lidocaine. Subsequently, an 18 guage 150-mm radiofrequency cannula with a 10-mm active tip was advanced guided by fluoroscopy to the identified target at each site. Needle positioning was confirmed on AP, oblique and lateral fluoroscopy. Motor testing at 2.5 Hz was done with paraspinal muscle stimulation only, and no radicular symptoms down the legs. Then 1 mL 0.5% ropivacaine was injected in each site. Radiofrequency thermocoagulation at 80 degrees celsius for 90 seconds was then performed. Quapaw were removed. Sterile dressings were applied. I then approached the right cervical paraspinal area. Identify 3 trigger points. After cleaning aseptically I injected 1 mL of a solution containing 2 mL of ropivacaine 0.5% and 40 mg of Kenalog. I injected after negative aspiration for air or blood. Quapaw were removed intact. COMPLICATIONS: No acute complications. DISPOSITION / PLANS: The patient was placed in a supine position and transfer red to the recovery area in a stable condition for observation and was discharged from the recovery room after meeting discharge criteria. Home discharge instructions given to the patient by the staff. The patient will follow up in clinic in 4 weeks.
[2021-05-04] MEDS ORDERED: IV FLUID CONTINUATION 1,000 ML IV ONE (12:20)
[2021-05-04 12:24] VITALS: RESP 16
[2021-05-04 12:38] VITALS: BP 130/63; PULSE 58
--- NOTE | 2021-05-04 13:39 | FL ---
EXAMINATION TYPE: FL guided pain mgmt statistic DATE OF EXAM: 05/04/2021 CLINICAL HISTORY: Low back pain. TECHNIQUE: Fluoroscopy. COMPARISON: None. FINDINGS: Fluoroscopic guidance was provided during pain relief procedure performed by Dr. Grant . A total of 71 seconds of fluoroscopic time was utilized during the procedure and 5 spot images are a cquired. Images acquired shows needle localization at multiple levels in the lumbar spine. IMPRESSION: As Above.
== END 2021-05-04 13:02 | disposition home or self-care (01) ==
LOC: ORPAIN 10:56
PROVIDERS: ATTEND Anesthesiology
DX: M47.812 Spondylosis without myelopathy or radiculopathy, cervical region (principal); M47.816 Spondylosis without myelopathy or radiculopathy, lumbar region
CPT/HCPCS: 20552; 64635; J2250; J3301; J2001; J3010; J2795

== ENCOUNTER → 2021-05-30 | Outpatient (CLI) | payer MEDICARE, BC ==
--- NOTE | 2021-05-30 14:31 | P.PN ---
Subjective Progress Note Date: 05/30/21 This is a follow-up visit for this 80 years old male with a chronic history of severe neck pain, and low back pain,, patient diagnosed with cervical spondylosis and cervical facet arthropathy, and lumbar spondylosis with lumbar facet arthropathy, previously patient had RFA of the medial branch cervical a jamari, and recently we did RFA of the medial branch lumbar area,patient reported that he continued to have low back pain, it is constant and increases with any movement, he denies any fever or night sweats. Denies any change in the bowel movement or urination he denies any motor or sensory deficit, he denies any numbness or tingling sensation. Physical Examinations : -Constitutiona : Cooperative , not in acute distress . -HEENT : nech : supple , no Lymphadenopathy , normal thyroid size . : eyes : no ptosis , no icterus, no photophobia . - neurologic : Cranial nerve II to XII intact , no focal neurological deffecit . -psychatric : alert , oriented X 3 , appropriate affect , intact judgment and insight . -Lymphatic : no Lymphadenopathy . - musculoskeltal : Cervical Spine motor stregnth in the deltoid and biceps, normal right side , normal Left side motor stregnth biceps and the wrist extensors normal right side ,normal left side . motor stregnth in the triceps muscle . normal Right side , normal Left side deep tendon reflexes normal at the biceps , normal at Brachioradialis , normal at triceps. cervical facet loading test: Positive on the right side Multiple trigger point identified in the right side cervical paraspinal muscles Lumber spine moter stegnth lower extremities ,thigh and legs 5/5 Right side , 5/5 Left side deep tendon reflexes : normal Knee Jerk , normal ankle Jerk lumber facet Loading Test =positive Right , positive Left Range of motion of the lumbar spine Flexion 30 degrees, extension 10 degrees strait leg raising test = positive at 30 bilaterally Fabere test= positive at 30 bilaterally . tenderness over the Sacroiliac joint on the Right , and Left sides MRI of the lumbar spine multilevel lumbar degenerative disc disease and multilevel lumbar spinal stenosis and multilevel lumbar facet arthropathy , there is severe spinal canal stenosis at the L4 5 Assessment and plan=1-cervical spondylosis with cervical facet arthropathy without myelopathy. 2-lumbar spinal stenosis 3-lumbar spondylosis with lumbar facet arthropathy without myelopathy. 4-lumbar degenerative disc disease Patient continued to have low back pain after RFA of the medial branch lumbar area , he could benefit from lumbar epidural steroid injection at L4 5 levels , risk and benefits and alternatives discussed with the patient he agreed with proceeding - PQRS measures = - Patient's medications are documented in the chart. -Tobacco use is negative and counseling.Given. -Patient's has not received pneumococcal vaccine. -Advanced care planning discussed, patient not eligible. -Opiate contract not signed. -Pain positive and follow-up visit/procedure is scheduled. -Patient's blood pressure measured [142/76 ] , and documented in the record ,and patient will follow up with the primary care. -Patient's weight was measured and body mass index [ 34 ] above th e,normal limits and counseling was done. and patient instructed to follow-up with the primary care physician. -Patient was not identified as an unhealthy alcohol user
[2021-05-30 14:35] VITALS: BP 142/76; PULSE 58; RESP 18; TEMP 97.9
== END ==
LOC: PNWHC3 13:49
PROVIDERS: ATTEND Specialist
DX: M47.812 Spondylosis without myelopathy or radiculopathy, cervical region (principal); M48.061 Spinal stenosis, lumbar region without neurogenic claudication; M47.816 Spondylosis without myelopathy or radiculopathy, lumbar region; M51.36 Other intervertebral disc degeneration, lumbar region; Z87.891 Personal history of nicotine dependence
CPT/HCPCS: 99211

== ENCOUNTER 2021-06-28 09:12 | Day surgery (SDC) | payer MEDICARE, BC ==
[2021-06-27 08:49] VITALS: BMI 34.0
[2021-06-28 09:31] VITALS: TEMP 97.8
[2021-06-28] MEDS ORDERED: LACTATED RINGERS 1,000 ML IV ONE (09:36)
[2021-06-28] MEDS ORDERED: MIDAZOLAM 2 MG/2 ML VIAL ONE (10:06)
[2021-06-28] MEDS ORDERED: TRIAMCINOLONE ACETONIDE 40 MG/ML 1 ML VIAL ONE (10:06)
[2021-06-28] MEDS ORDERED: IOPAMIDOL M200 10 ML VIAL ONE (10:06)
[2021-06-28] MEDS ORDERED: ROPIVACAINE 5MG/ML 20ML VIAL ONE (10:06)
[2021-06-28] MEDS ORDERED: fentaNYL (PF) 50 MCG/ML 2 ML AMP ONE (10:06)
--- NOTE | 2021-06-28 10:25 | P.PCN ---
Date of Procedure: 06/28/21 Surgeon: Julio Cesar Trotter Pathology: none sent Condition: stable Disposition: PACU Description of Procedure: PREOPERATIVE DIAGNOSIS: 1-Lumbar radiculopathy 2- Lumber Degenerative Disc Diseases. POSTOPERATIVE DIAGNOSIS: 1-Lumbar stenosis. 2-Lumbar Degenerative Disc Diseases PROCEDURE 1. Lumbar epidural steroid injection under fluoroscopic guidance at the L4-5 level. 2. Lumbar epidurogram. ANESTHESIA: Local with 1% lidocaine; and IV moderate conscious sedation with Versed and fentanyl EBL: Minimal PROCEDURE INDICATION: The patient with low back pain and radiculitis symptoms unresponsive to conservative treatment. Fluoroscopy was used to optimize visualization of the needle placement and to maximize safety. PROCEDURE DESCRIPTION / TECHNIQUE: The patient was seen and identified in the preoperative area. Risks, benefits, complications including but not limited to infections ,bleeding ,allergic reaction to the medications ,nerve damage and not complete pain relief , and alternatives were discussed with the patient. The patient agreed to proceed with the procedure and signed the consent. IV was started, and vital signs were stable. Patient was taken to the OR and time out was completed. The patient was placed in the prone position on procedure table and a pillow was placed under the abdomen to reduce lumbar lordosis. The lumbosacral area was prepped and draped in the usual sterile fashion with ChloraPrep.Patient was closely monitored during the procedure. Conscious sedation was used during the procedure to decrease patients anxiety. Vital signs were monitered during the entire procedure. Using anterior-posterior fluoroscopy, the L4-5 interlaminar space was identified and the skin over this site was marked and then infiltrated with 1% lidocaine subcutaneously. Subsequently, a 20-gauge Tuohy epidural needle was inserted and advanced toward the epidural space using the Loss of resistance to air technique and guided by AP and lateral fluoroscopy. The correct needle position in the epidural space was verified with the injection of 1 mL of the water soluble contrast dye Omnipaque 180 contrast and observing an excellent epidurogram with the epidural spread of the dye, after negative aspiration for blood and CSF and in the absence of paresthesias. Again after negative aspiration, a 6 ml mixture containing 40 mg of Kenalog and 3 ml of preservative free Normal Saline, and 2 ml of preservative free ropivacaine 0.5% solution was injected and a washout of epidurogram was seen. Needle was withdrawn intact, skin was cleansed, and bandages were applied. patient tolerated procedure well and was transferred to PACU in stable condition.A copy of the needle placement picture was saved to the fluoroscopy machine. COMPLICATIONS: None DISPOSITION / PLANS: The patient was placed in a supine position and transferred to the recovery area in a stable condition for observation. There was no evidence of lower extremity motor or sensory deficit after the procedure. Patient was discharged from the recovery room after meeting discharge criteria. Home discharge instructions were given to the patient by the staff. The patient was reexamined prior to discharge. The patient will schedule a follow up in the clinic in 2-4 weeks.
[2021-06-28] MEDS ORDERED: IV FLUID CONTINUATION 300 ML IV ONE (10:33)
[2021-06-28 10:35] VITALS: RESP 16
--- NOTE | 2021-06-28 10:45 | FL ---
EXAMINATION TYPE: FL guided pain mgmt statistic DATE OF EXAM: 06/28/2021 CLINICAL HISTORY: Low back pain. TECHNIQUE: Fluoroscopy. COMPARISON: None. FINDINGS: Fluoroscopic guidance was provided during pain relief procedure performed by Dr. Trotter . A total of 27 seconds of fluoroscopic time was utilized during the procedure and two spot images ar e acquired. Images acquired shows needle localization at L4-L5 level with contrast injection. IMPRESSION: As Above.
[2021-06-28 10:59] VITALS: BP 139/75; PULSE 71
== END 2021-06-28 11:20 | disposition home or self-care (01) ==
LOC: ORPAIN 09:12
PROVIDERS: ATTEND Anesthesiology
DX: M51.16 Intervertebral disc disorders with radiculopathy, lumbar region (principal); M48.061 Spinal stenosis, lumbar region without neurogenic claudication; I10 Essential (primary) hypertension
CPT/HCPCS: 62323; J2250; J3301; J3010; Q9966; J2795; 99152

== ENCOUNTER → 2021-07-25 | Outpatient (CLI) | payer MEDICARE, BC ==
[2021-07-25 14:47] VITALS: BP 165/76; PULSE 71; RESP 18
--- NOTE | 2021-07-25 15:10 | P.PN ---
Subjective Progress Note Date: 07/25/21 Ruy is an 80-year-old male presenting to clinic today for follow-up appointment after a lumbar epidural steroid injection June 28. As a long history of lumbar degenerative disc disease, lumbar spondylosis with facet arthropathy without myelopathy, and lumbar radiculopathy. Since his injection he has felt great. He says this is the best he has felt in 20 years. He's had multiple injections before that have not given the relief that he has now. Reports with activity his pain is 2 out of 10 at rest to 0 out of 10. When he does have pain into his lower mid back which is described as a dull ache. Pain is worse with activity and walking. Pain is better with rest and procedures. He denies any b owel or bladder dysfunction, saddle anesthesia, or any other red flag symptoms. He denies any adverse effect or complications from his last intervention. Objective - Vital Signs Vital signs: Intake & Output 07/24/21 07/25/21 07/25/21 18:59 06:59 18:59 Weight 102.512 kg - Exam Physical Examinations : -Constitutiona : Cooperative , not in acute distress . -HEENT : nech : supple , no Lymphadenopathy , normal thyroid size . : eyes : no ptosis , no icterus, no photophobia . - neurologic : Cranial nerve II to XII intact , no focal neurological deffecit . -psychatric : alert , oriented X 3 , appropriate affect , intact judgment and insight . -Lymphatic : no Lymphadenopathy . - musculoskeltal : Lumber spine moter stegnth lower extremities ,thigh and legs 5/5 Right side , 5/5 Left side deep tendon reflexes : normal Knee Jerk , normal ankle Jerk lumber facet Loading Test =positive Right , positive Left Range of motion of the lumbar spine Flexion 30 degrees, extension 10 degrees strait leg raising test = positive at 30 degree Assessment and Plan Assessment: Assessment and plan=1-cervical spondylosis with cervical facet arthropathy without myelopathy. 2-lumbar spinal stenosis 3-lumbar spondylosis with lumbar facet arthropathy without myelopathy. 4-lumbar degenerative disc disease Patient had significant relief with his last lumbar epidural steroid injection. He will call the clinic to reschedule an appointment if his pain returns. - PQRS measures = - Patient's medications are documented in the chart. -Tobacco use is negative -Patient's has not received pneumococcal vaccine. -Advanced care planning discussed, patient not eligible. -Opiate contract not signed. -Pain positive and follow-up visit/procedure is scheduled. -Patient's blood pressure measured 165/76 , and documented in the record ,and patient will follow up with the primary care. -Patient was not identified as an unhealthy alcohol user Time with Patient: Less than 30
== END ==
LOC: PNWHC3 13:38
PROVIDERS: ATTEND Student in an Organized Health Care Education/Training Program
DX: M47.812 Spondylosis without myelopathy or radiculopathy, cervical region (principal); M48.061 Spinal stenosis, lumbar region without neurogenic claudication; M47.816 Spondylosis without myelopathy or radiculopathy, lumbar region; M51.36 Other intervertebral disc degeneration, lumbar region; Z87.891 Personal history of nicotine dependence
CPT/HCPCS: 99211

== ENCOUNTER → 2021-09-10 | Outpatient (CLI) | payer MEDICARE, BC ==
--- NOTE | 2021-09-11 07:06 | CT ---
"EXAMINATION TYPE: CT chest w con DATE OF EXAM: 09/10/2021 COMPARISON: Chest x-ray 12 days ago HISTORY: chronic cough CT DLP: 530 mGycm. Automated Exposure Control for Dose Reduction was Utilized. TECHNIQUE: CT scan of the thorax is performed following with IV Contrast, patient injected with 80 m L of Isovue 300. FINDINGS: LUNGS: New Multifocal areas of groundglass opacity bilaterally involving upper and lower lungs. No pl eural effusion or pneumothorax seen bilaterally. There is 7 to 8 mm peripheral right lower lobe nodul e axial image 46. There is additional 9 x 6 mm right lower lobe nodule just superior to this coronal image 80. Tracheobronchial tree is patent. MEDIASTINUM: There are no greater than 1 cm hilar or mediastinal lymph nodes. No cardiomegaly or pe ricardial effusion is seen. Coronary artery calcification is present which is noted marker for underl sergei coronary artery disease. Moderate peripheral plaque in the aortic arch extends into the descendi ng aorta. Slightly smaller than normal thyroid gland. OTHER: Scattered calcifications throughout the spleen. Moderate multilevel anterior and lateral spurr ing in the spine. IMPRESSION: 1. New bilateral multifocal groundglass opacities suspicious for covid-19 infection in current enviro nment, clinical correlation and follow-up is advised. 2. There are 2 right lower lobe pulmonary nodules measuring near [address] axis [address] follow-up in 3-6 months time to reassess as per Fleischner Society recommendations. A [place] level critical message alert has been initiated for Mohan Frances DO via the [employer] 36 0 | Critical Results System on 09/11/2021 7:03 AM. This message alert has been sent to Mohan Frances DO via the preferences provided by the clinician for the receipt of Radiology Critical Findings. [facility] [address] [facility] [place] [id number]."
== END | disposition home or self-care (01) ==
LOC: RADCTMAIN 15:04
PROVIDERS: ATTEND Internal Medicine Critical Care Medicine
DX: R91.8 Other nonspecific abnormal finding of lung field (principal); R05.3 Chronic cough
CPT/HCPCS: 82565; 84520; 71260; 36415; Q9967